=== PATIENT | male | born 2000 | race Two or more races ===

== ENCOUNTER 2024-04-06 11:30 | Emergency (ER) | payer MEDICAID, OTHER ==
[~2024-04-06] VITALS: Ht 188 cm; Wt 75.9 kg
[2024-04-06 11:30] VITALS: BP 108/41; RESP 18; O2SAT 95
[2024-04-06 11:54] LABS: Basophils # (auto) 0 10 ^3/uL (0-0.2); Basophils % (auto) 0.5 % (0.0-2.0); Eosinophils # (auto) 0 10 ^3/uL (0-0.8); Eosinophils % (auto) 0.6 % (0.0-7.0); Hematocrit 45.6 % (41.0-53.0); Hemoglobin 15.6 g/dL (13.5-17.5); Lymphocytes # (auto) 1.6 10 ^3/uL (0.4-5.4); Lymphocytes % (auto) 25.9 % (10.0-50.0); Mean Corpuscular Hemoglobin 31.6 pg (28.0-32.0); Mean Corpuscular Hgb Conc. 34.3 g/dL (32.0-36.0); Mean Corpuscular Volume 92.2 fL (80.0-100.0); Monocytes # (auto) 0.4 10 ^3/uL (0-1.3); Nucleated Red Blood Cells % 0.1 %; Red Blood Cells 4.95 10^6/uL (4.5-5.90); White Blood Cell 6.1 10^3/uL (4.4-10.8)
[2024-04-06 12:11] LABS: Alanine Aminotransferase 18 U/L (7-40); Albumin 4.9 g/dL (3.2-4.8); Alkaline Phosphatase 100 U/L (46-116); Anion Gap 9 (5-15); Aspartate Aminotransferase 14 U/L (13-40); BUN/Creatinine Ratio 17.6 (10.0-20.0); Blood Urea Nitrogen 16 mg/dL (9-23); Carbon Dioxide 23 mmol/L (20-30); Chloride 108 mmol/L (98-107); Glucose 89 mg/dL (74-106); Potassium 3.7 mmol/L (3.5-5.1); Sodium 140 mmol/L (136-145)
[2024-04-06 12:12] LABS: Bilirubin, Total 1.2 mg/dL (0.2-1.0); Total Protein 7.5 g/dL (5.7-8.2)
[2024-04-06] MEDS: SODIUM CHLORIDE 0.9% 2,000 ML IV ONE (12:32)
[2024-04-06 12:36] VITALS: PULSE 60
== END 2024-04-06 14:20 | disposition home or self-care (01) ==
LOC: ER 11:30
DX: R55 Syncope and collapse (principal); E86.0 Dehydration; F41.9 Anxiety disorder, unspecified; R42 Dizziness and giddiness
CPT/HCPCS: 36415; 70450; 80053; 80320; 84484; 85025; 93005; 96360; 99291; J7030

== ENCOUNTER 2024-04-30 22:38 | Emergency (ER) | payer MEDICAID ==
[~2024-04-30] VITALS: Ht 188 cm; Wt 78.0 kg
[2024-04-30 22:38] VITALS: BP 122/55; PULSE 74; RESP 20; O2SAT 96
== END 2024-05-01 00:04 | disposition left against medical advice (07) ==
LOC: ER 22:38
DX: H92.02 Otalgia, left ear (principal); J02.9 Acute pharyngitis, unspecified; Z53.21 Procedure and treatment not carried out due to patient leaving prior to being seen by health care provider